=== PATIENT | male | born 1980 | race Caucasian/White ===

== ENCOUNTER 2021-08-06 11:53 | Emergency (ER) | payer SELFPAY ==
[2021-08-06] MEDS ORDERED: CEPHALEXIN500 MG PO (13:59)
== END 2021-08-06 14:27 | disposition home or self-care (01) ==
LOC: ER1 11:53
DX: S60.511A Abrasion of right hand, initial encounter (principal); Z88.0 Allergy status to penicillin; L03.113 Cellulitis of right upper limb; W23.0XXA Caught, crushed, jammed, or pinched between moving objects, initial encounter; I10 Essential (primary) hypertension
CPT/HCPCS: 73130; 99283

== ENCOUNTER 2021-12-03 10:10 | Emergency (ER) | payer SELFPAY ==
[~2021-12-03 10:10] MED LIST: CEPHALEXIN500 MG PO
== END 2021-12-03 14:22 | disposition home or self-care (01) ==
LOC: ER1 10:10
DX: S46.201A Unspecified injury of muscle, fascia and tendon of other parts of biceps, right arm, initial encounter (principal); I10 Essential (primary) hypertension; E78.5 Hyperlipidemia, unspecified; Z88.0 Allergy status to penicillin; Z79.899 Other long term (current) drug therapy; F17.220 Nicotine dependence, chewing tobacco, uncomplicated; X50.0XXA Overexertion from strenuous movement or load, initial encounter; Y99.0 Civilian activity done for income or pay
CPT/HCPCS: 73080; 73090; 99283

== ENCOUNTER → 2021-12-10 | Outpatient (CLI) | payer OTHER, BC | LOC: EMI 08:06 | DX: S46.211A Strain of muscle, fascia and tendon of other parts of biceps, right arm, initial encounter (principal) | CPT/HCPCS: 73221 ==